=== PATIENT | female | born 1940 | race Caucasian/White ===

== ENCOUNTER → 2018-10-02 | Outpatient (CLI) | payer MEDICARE, OTHER ==
[~2018-10-02] MED LIST: Barium Sulfate w/v 2.1% Oral Susp 450 ML Bottle PO ONE; Iopamidol 612 MG/ML 100 ML Bottle IVPUSH ONE
--- NOTE | 2018-10-04 13:56 | CT ---
Clinical history: 78-year-old 137 pound female with B-cell lymphoproliferative disorder (non-Hodgkin's lymphoma), "on observation". Patient reported on last exam 02 June 2018 exam to have "axillary/retroperitoneal lymphadenopathy, severe lower lumbar disc disease, sigmoid diverticulosis and bilateral renal cortical cysts". These findings evident on earlier exams and unchanged since 04 April 2017 and 04 September 2017. Follow-up reevaluation please. Scan technique: Volume acquisition of data from the chest, abdomen and pelvis obtained after oral ingestion 2 bottles Redicat barium and during/after (20 minute delay) intravenous infusion 75 cc Isovue-300 (2.5 cc/s via injector) while patient was lying supine on the Siemens multi slice scanner [place], [place]. All data archived in the PACS system for storage, reformatting axial/sagittal/coronal planes and study. (6 CT exams since July 2016) Interpretation: No evidence metastatic or new primary malignancy chest/abdomen/pelvis CT exam. 1. Axillary lymphadenopathy (lymph nodes unchanged in number, configuration and location but appear relatively larger in the interval since previous exams 04 September 2017 and 03 August 2016). Significance? Inguinal lymphadenopathy unchanged. 2. Retroperitoneal periaortic and retrocaval lymph nodes unchanged in size, number and configuration since 03 August 2016. 3. Bilateral benign renal cortical cysts. Chronic sigmoid diverticulosis without acute inflammation. 4. No new pelvic/abdominal mass lesion, inflammatory "dirty" peritoneal fat (inflammation), ascites or free intraperitoneal air. 5. Normal caliber thoracic/abdominal aorta and major branches. No aneurysm or dissection. 6. Severe lower lumbar disc degeneration with associated reactive arthritic changes L4-5 level. No fracture or dislocation. 7. No new lung nodule or mass lesion, significant hilar/mediastinal lymphadenopathy, or dependent pleural fluid accumulation.
== END ==
LOC: DL.CT 09:12
PROVIDERS: ATTEND Internal Medicine Hematology & Oncology
DX: D47.Z9 Other specified neoplasms of uncertain behavior of lymphoid, hematopoietic and related tissue (principal)
CPT/HCPCS: 71260; 74177; Q9967

== ENCOUNTER 2018-12-10 07:20 | Day surgery (SDC) | payer MEDICARE, OTHER ==
[2018-12-10] MEDS ORDERED: Dexamethasone 4 MG/ML SDV IV ONE (07:21)
[2018-12-10] MEDS ORDERED: Midazolam 1 MG/ML 2 ML SDV IV ONE (07:21)
[2018-12-10] MEDS ORDERED: Sodium Chloride 0.9% 10 ML Syringe IV ONE (07:21)
[2018-12-10] MEDS ORDERED: Phenylephrine 10% Ophth Soln 5 ML Bot EYERT PRN (07:30)
[2018-12-10] MEDS ORDERED: Acetaminophen 325 MG Tab PO PRN (07:30)
[2018-12-10] MEDS ORDERED: Ondansetron 4 MG/2 ML SDV IVPUSH PRN (07:30)
[2018-12-10] MEDS: Povidone-Iodine 5% Sterile Ophth Soln 30 ML Bottle EYERT ONE ×2 (07:46→08:37)
[2018-12-10] MEDS: Proparacaine 0.5% Ophth Soln 15 ML Bottle EYERT ONE (07:46)
[2018-12-10] MEDS: Moxifloxacin 0.5% Ophth Soln 3 ML Bottle EYERT ONE (07:47)
[2018-12-10] MEDS: Phenylephrine 10% Ophth Soln 5 ML Bot EYERT ONE (07:48)
[2018-12-10] MEDS: Timolol Maleate 0.5% Ophth Soln 5 ML Bottle EYERT ONE (07:49)
[2018-12-10] MEDS: Cataract Ophth Solution EYERT ONE (07:50)
[2018-12-10] MEDS: Sodium Chloride 0.9% 10 ML Syringe FLUSH PRN (07:51)
[2018-12-10] MEDS: Tetracaine HCl/PF 0.5% 4 ML Bottle EYERT ONE (08:28)
[2018-12-10] MEDS: Lidocaine 1% 30 ML SDV ONE (08:37)
[2018-12-10] MEDS: Apraclonidine 0.5% Ophth Soln 5 ML Bot EYERT ONE (08:38)
[2018-12-10] MEDS: Diclofenac Sodium 0.1% Ophth Soln 5 ML Bottle EYERT ONE (08:39)
[2018-12-10] MEDS: Dexamethasone/Neomycin/Polymyxin B Ophth Oint 3.5 GM Tube EYERT ONE (08:40)
[2018-12-10] MEDS: Balanced Salt Solution Ophth Irrig 500 ML Bottle IOCULAR ONE (08:41)
[2018-12-10] MEDS: Vancomycin 500 MG SDV EYERT ONE (08:41)
[2018-12-10] MEDS: Chondroitin Sulfate/Hyaluronate Sodium Ophth Inj 0.75 ML Syringe EYERT ONE (08:42)
--- NOTE | 2018-12-10 11:45 | OR ---
DATE: 12/10/2018 PREOPERATIVE DIAGNOSIS: Visually significant mixed cataract, right eye. POSTOPERATIVE DIAGNOSIS: Visually significant mixed cataract, right eye. PROCEDURE: Extracapsular cataract extraction with intraocular lens implant, right eye. ANESTHESIA: Topical/local MAC. COMPLICATIONS: None. INDICATION: Visually significant symptomatic cataract, right eye. Surgical risks were explained preoperatively including the potential for infection, retinal detachment, loss of vision amongst others. She is symptomatic and requested surgery. She voiced an understanding with respect to risks. She requested a monofocal implant. OPERATIVE DESCRIPTION: After informed consent was obtained and the risks, benefits, and alternatives were explained, the patient was brought to the operative suite and topical anesthesia was administered. The patient was then prepped and draped in the sterile fashion and attention was placed on the right eye. A sterile lid speculum was placed into the right eye to allow operative exposure. A full-thickness paracentesis was made in the temporal portion of the operative eye. Preservative-free lidocaine 0.1 mL was injected into the anterior chamber followed by viscoelastic. A full-thickness corneal incision was then made into the anterior chamber. A bent needle cystotome was used to create a small agatha in the anterior capsule. The capsulorrhexis forceps was then used to create a 360-degree curvilinear capsulorrhexis. The nucleus was then removed using a phacoemulsification handpiece and the remaining cortical material was then removed with irrigation and aspiration handpiece. Following removal of the cortical material, the capsular bag was then inspected and noted to be free of any holes or tears. Viscoelastic was then injected into the capsular bag and the intraocular lens was inserted into the capsular bag. The viscoelastic material was then removed from both the anterior and posterior chambers and from behind the IOL. The lens and capsular bag were then reinspected. The IOL was well centered and the capsular bag intact. The wound and paracentesis sites were inspected and hydrated with balanced saline solution. Both were found to be self- sealing. The intraocular pressure was assessed digitally and found to be within normal range. A good red reflex was noted at the completion of the procedure. No complications occurred during the operation. At the completion of the procedure, Maxitrol, Voltaren, and Iopidine drops were placed into the operative eye. A sterile eye shield was placed over the operative eye and the patient was transported to the postoperative recovery area having tolerated the procedure well. Postoperative instructions were given along with a postoperative appointment. The patient was advised to call with any questions or concerns. [facility] /[id number]
[2018-12-10 13:41] VITALS: BP 95/51
== END 2018-12-10 09:51 | disposition home or self-care (01) ==
LOC: DL.SDS 07:20
PROVIDERS: ATTEND Ophthalmology
DX: H26.8 Other specified cataract (principal); E78.00 Pure hypercholesterolemia, unspecified; C85.10 Unspecified B-cell lymphoma, unspecified site; J45.909 Unspecified asthma, uncomplicated; K57.30 Diverticulosis of large intestine without perforation or abscess without bleeding; K59.09 Other constipation; Z79.82 Long term (current) use of aspirin; Z79.899 Other long term (current) drug therapy
CPT/HCPCS: A9270-GY; C1780; J1100; J2001; J2250; J3370

== ENCOUNTER 2019-07-06 06:44 | Day surgery (SDC) | payer MEDICARE, OTHER ==
[~2019-07-06 06:44] MED LIST changes: -Barium Sulfate w/v 2.1% Oral Susp 450 ML Bottle PO ONE; -Iopamidol 612 MG/ML 100 ML Bottle IVPUSH ONE; +Midazolam 1 MG/ML 2 ML SDV ONE; +fentaNYL 100 MCG/2 ML SDV ONE
[2019-07-06] MEDS ORDERED: Midazolam 1 MG/ML 2 ML SDV IV ONE ×4 (06:45→08:03)
[2019-07-06] MEDS ORDERED: fentaNYL 100 MCG/2 ML SDV IV ONE ×3 (06:45→07:53)
[2019-07-06] MEDS ORDERED: Dextrose 5%-0.45% NaCl 1,000 ML IV SCH (07:45)
--- NOTE | 2019-07-06 08:42 | OR ---
DATE: 07/06/2019 PROCEDURE: Total colonoscopy. INSTRUMENT USED: PCF-H190DL Olympus video colonoscope. PREMEDICATIONS: Fentanyl 100 mcg intravenous, Versed 3 mg intravenous, nasal O2 cannula. The procedure was done under pulse oximetry, BP recording, and vender. INDICATION: The patient with progressive constipation, unexplained, and not responsive to medical measures. Colonoscopic examination is done for detection of any polypoid lesions and removal, endoscopic hemostasis therapy if needed. DESCRIPTION OF PROCEDURE: Initial rectal exam was unremarkable. Rigid anoscopy was normal. The colonoscope was passed with ease. Numerous scattered diverticula were noted in the distal left colon along with deformity. The scope was passed with ease up to the ileocecal area. Photographs were taken of the normal-appearing cecum identified by landmarks of appendiceal orifice and double- bulged ileocecal folds. No bleeding was noted from any of the visualized areas at the commencement of the examination, but there was quite a bit of liquid fecal material that had to be aspirated, bowel preparation of class 2 in all the areas. No stricture. No vascular ectasia. No large isolated ulcerations seen. No evidence of diffuse inflammatory bowel disease in the form of friability, contact bleeding, or ulcerations. No polyp or tumor mass identified. Probing the proximal sides of folds and flexures using adequate distention and clearing up the stool material, withdrawal of the scope was made, cecum to rectum time over 6 minutes. No bleeding was noted from any of the visualized areas at the completion of examination. IMPRESSION: Diverticulosis. The patient tolerated the procedure well. [facility] /[id number]
[2019-07-06 11:27] VITALS: BP 98/45; PULSE 49
== END 2019-07-06 10:35 | disposition home or self-care (01) ==
LOC: DL.ENDO 06:44
PROVIDERS: ATTEND Internal Medicine Gastroenterology
DX: K57.30 Diverticulosis of large intestine without perforation or abscess without bleeding (principal)
CPT/HCPCS: 45378; J2250; J3010; J7042; G0121